=== PATIENT | male | born 1935 | race Caucasian/White ===

== ENCOUNTER 2019-05-10 15:53 | Emergency (ER) | payer OTHER, SELFPAY ==
[2019-05-10] VITALS (24 sets, daily range): BP systolic 94–124; BP diastolic 48–78; PULSE 84–182; RESP 18–36; TEMP 36.7; O2SAT 94–98
[2019-05-10 16:21] LABS: Abs Immature Grans 0.09 k/cumm (0.0-0.09); Absolute Basophil Count 0.02 k/cumm (0.0-0.2); Absolute Eosinophil Count 0.02 k/cumm (0.0-0.7); Absolute Lymphocyte Count 0.32 k/cumm (1.2-3.4); Basophils % 0.1; Eosinophils % 0.1; HCT 42.8 % (40.0-50.0); HGB 14.1 g/dL (13.5-17.5); Immature Grans % 0.5; Lymphocytes % 1.6; Mean Corp. HGB Concentration 32.9 g/dL (32.0-36.0); Mean Corpuscular Hemoglobin 30.3 pg (27.0-33.0); Mean Platelet Volume 10.1 fL (8.0-11.0); Monocytes % 8.5; Neutrophils % 89.2; Platelet Count 148 x1000/uL (130-400); RBC 4.65 m/cumm (4.50-6.00); RBC Distribution Width 17.8 % (11.8-14.1); White Blood Cell Count 19.88 k/cumm (4.4-10.8)
[2019-05-10 16:24] LABS: Absolute Monocyte Count 1.69 k/cumm (0.11-0.7); Absolute Neutrophil Count 17.73 k/cumm (1.2-6.7)
[2019-05-10 16:34] LABS: Prothrombin Time 31.7 sec (9.3-11.0)
[2019-05-10 16:40] LABS: INR 3.2 (0.9-1.1)
--- NOTE | 2019-05-10 16:43 | W.ED.GENAD ---
Discharge Plan Disposition Patient Disposition: [facility] Condition: Serious Discharge Details Chief Complaint: Vascular Clinical Impression: CHF (congestive heart failure), Leukocytosis Primary Care Provider: Erika,Local ED Provider: Omid Aviles Home Meds and New Rx's Prescriptions: No Action furosemide 20 MG tablet 80 mg PO BID RF: 0 metoprolol tartrate 25 MG tablet 125 mg PO DAILY RF: 0 warfarin [Coumadin] 5 MG tablet 10 mg PO DAILY RF: 0 ammonium lactate 12 % Lotion 1 applic TOPICAL DAILY RF: 0 cyanocobalamin (vitamin B-12) 1,000 mcg Tablet 1,000 mcg PO USEASDIRECTD RF: 0 melatonin 3 mg Tablet 6 mg PO HS RF: 0 allopurinol 100 mg Tablet 100 mg PO DAILY RF: 0 calcium carbonate [Calcium 500] 500 mg calcium (1,250 mg) Tablet 500 mg PO BID RF: 0 mirtazapine 30 mg Tablet 15 mg PO QHS RF: 0 albuterol sulfate 90 mcg/actuation Hfa Aerosol Inhaler 2 puff INHALATION 6XD PRNRF: 0 aspirin 81 MG tablet,chewable 81 mg PO DAILY RF: 0 Discharge Data Discharge Date/Time-TO BE ENTERED AT DEPARTURE: 05/10/19 20:55 Medical Decision Making 16:45 --83-year-old male with history of dementia, CHF, apparent aneurysm right lower extremity, here with difficult to discern chief complaint. Patient seems altered. Unclear at baseline. No focal neurologic deficits appreciated. Labs reviewed and leukocytosis noted. INR is therapeutic at 3.2. Patient does have increased work of breathing with lower extremity edema. Concern for acute exacerbation of his CHF. Nursing attempting to contact family. 17:30 --labs were reviewed troponin is elevated at 0.15. Patient also has notable leukocytosis, lactate of 2.0, and creatinine of 1.99. Prior creatinine from 2018 was 1.5. ECG was reviewed and interpreted by me: Atrial fibrillation 110 bpm, no STEMI, significant artifact, nondiagnostic. Patient does have a history of atrial fibrillation. I spoke with the patient's who is well informed of his condition, unfortunately, she is not able to join him here in the emergency department today as she recently had surgery. She notes that the reason she called EMS today was for increasing confusion over the past few weeks and worse over the past 10 days as well as increasing difficulty ambulating and shortness of breath. She notes that he has not had any fever, cough, headache, or neck stiffness. She does note that he recently had an admission a few weeks ago at the [facility] for [facility]. She states that his confusion waxes and wanes and can be severe at times. She confirms that she is the patient's healthcare power of burner shaft and it desire is for DNR/DNI. She does request the patient be transferred to [facility] for further treatment if possible. I asked the her about the patient's right lower extremity. She notes that he has persistent pain in this leg and that aneurysm and that popliteal fossa is stable at recent checkup. She notes that he has had chronic redness of his anterior distal right lower extremity without recent change. Suspect acute CHF exacerbation. Consider underlying infectious etiology including urinary tract infection. Patient is afebrile with no neck stiffness and no complaint of headache. I feel meningitis/encephalitis unlikely. UA and cxr pending. -- cxr reviewed and interpreted by me: No consolidation. UA neg. Labs reviewed and BNP is elevated at 7000 which is higher than prior value 5000 in 2018. Patient be administered Lasix 20 mg IV. Although erythema of right lower extremity thought to be chronic, potential source for elevated leukocytosis and lactic acidosis at this time is cellulitis of right lower extremity. Will cover with vancomycin 1.5g and ceftriaxone 2g. Plan to hospitalize for further treatment. [facility] and I spoke with his and she request transfer to [facility]. I explained that we could admit him here and treat him here and she felt that, given his prior extensive care at the [facility] she would request that he be transferred there at this time. I called the [facility] and spoke with Dr. Chu who will accept the patient in transfer. -- Repeat trop and lactate repeated resulted after discharge and increased. [facility]. HPI General Mode of arrival: EMS. Date/Time Provider Initiated Documentation: 05/10/19 16:01. Limitations to Documentation: altered mental status. Information obtained by: patient and EMS. HPI Narrative: 83-year-old male arrives with EMS, history listed in computer of atrial fibrillation, hypertension, hyperlipidemia, ischemic vascular disease bilateral lower extremities, AAA, Alzheimer's dementia, here with unclear chief complaint. Per EMS, they were called for increasing pain right leg. Patient notes he has mild pain that is chronic in his right distal lower extremity. History and review of systems limited secondary to dementia. I will attempt to obtain additional [facility] and from patient's was not currently present. Related Data Home Medications Medication Instructions Recorded Confirmed furosemide 80 mg PO BID 02/13/13 05/10/19 metoprolol tartrate 125 mg PO DAILY 02/13/13 05/10/19 warfarin [Coumadin] 10 mg PO DAILY 03/22/14 05/10/19 aspirin 81 mg PO DAILY 02/03/18 02/03/18 albuterol sulfate 2 puff INHALATION 6XD PRN 05/10/19 05/10/19 allopurinol 100 mg PO DAILY 05/10/19 05/10/19 ammonium lactate 1 applic TOPICAL DAILY 05/10/19 05/10/19 calcium carbonate [Calcium 500] 500 mg PO BID 05/10/19 05/10/19 cyanocobalamin (vitamin B-12) 1,000 mcg PO USEASDIRECTD 05/10/19 05/10/19 melatonin 6 mg PO HS 05/10/19 05/10/19 mirtazapine 15 mg PO QHS 05/10/19 05/10/19 Allergies Allergy/AdvReac Type Severity Reaction Status Date / Time simvastatin AdvReac Intermediate Dizziness/L Unverified 02/03/18 02:42 ightheade General Stated Complaint: Vascular JANET: 3 Review of Systems Narrative: ROS limited secondary to altered mental status All systems reviewed & are unremarkable except as noted in HPI and below Constitutional Constitutional: Denies fever(s) Cardiovascular Cardiovascular: Denies chest pain and Denies dyspnea Respiratory Respiratory: Denies dyspnea Gastrointestinal Gastrointestinal: Denies abdominal pain [facility] Medical History A-fib (Chronic) Alzheimer disease (Chronic) Aneurysm of right leg (Acute) CHF (congestive heart failure) (Chronic) Gout (Chronic) Social History Smoking/Tobacco Use Status: Never Alcohol Intake: current Alcohol Intake frequency: a few times a month Alcohol type: beer Drug use: Never Substance use type: does not use Do you feel safe at home: Yes Do you feel safe in your relationship?: Yes Exam Const General: cooperative and no acute distress HENMT Head: normocephalic Mouth: moist mucous membranes Eyes Conjunctivae: normal conjunctivae Sclera: normal sclerae EOM: EOM intact bilaterally Neck Neck: trachea midline and supple Resp Effort & Inspection: no audible wheezes, labored and tachypneic Auscultation: rales bilaterally, no rhonchi and no wheezes Cardio Jugular venous pressure: no JVD Rate: tachycardic Rhythm: regular rhythm Heart Sounds: no click, no gallops, no murmurs and no rubs Pulses: dorsalis pedis pulses present on the right dopplerable GI Palpation: soft, not firm, no guarding, no masses, not rigid and nontender Skin Rashes: rashes noted (Redness distal right lower extremity involving anterior lower leg) Neuro General: alert, awake, tone normal, confused and other (Patient is oriented times person and place, slow to respond to date) Extrem General: edema Laterality: bilateral (1+ pitting) Psych Appearance: grossly normal Course Vital Signs Vital signs: Vital Signs Temperature 36.7 C 05/10/19 16:01 Pulse 114 H 05/10/19 16:01 Respiratory Rate 36 H 05/10/19 16:01 Blood Pressure 117/72 05/10/19 16:01 Pulse Oximetry 95 05/10/19 16:01 Temperature 36.7 C 05/10/19 16:01 Temperature Source Skin 05/10/19 16:01 Pulse 114 H 05/10/19 16:01 Respiratory Rate 36 H 05/10/19 16:01 Respiratory Effort 05/10/19 16:15 Blood Pressure 117/72 05/10/19 16:01 Pulse Oximetry 95 05/10/19 16:01 Oxygen Delivery Method Nasal Cannula 05/10/19 16:01 Oxygen Flow Rate 2 05/10/19 16:01 Pain Level 1 05/10/19 16:01 Lab/Test Results Lab/Test Results: Laboratory Tests Range/Units 05/10/19 05/10/19 16:09 16:09 WBC (4.4-10.8) k/cumm 19.88 H RBC (4.50-6.00) m/cumm 4.65 Hgb (13.5-17.5) g/dL 14.1 Hct (40.0-50.0) % 42.8 MCV (80-95) fL 92.0 MCH (27.0-33.0) pg 30.3 MCHC (32.0-36.0) g/dL 32.9 RDW (11.8-14.1) % 17.8 H Plt Count (130-400) x1000/uL 148 MPV (8.0-11.0) fL 10.1 PT (9.3-11.0) sec 31.7 H INR (0.9-1.1) 3.2 H
[2019-05-10 16:57] LABS: ALT 29 U/L (16-63); AST 34 U/L (15-37); Albumin 3.4 g/dL (3.4-5.0); Alkaline Phosphatase 155 U/L (46-116); Anion Gap 10.4 mmol/L (3-11); BUN 75 mg/dL (7-18); Bilirubin, Total 2.8 mg/dL (0.2-1.0); CO2 27.6 mmol/L (21.0-32.0); CREATININE 1.99 mg/dL (0.70-1.30); Chloride 99 mmol/L (98-107); Estimated GFR 32.25 (mL/min/1.73m2); Glucose 143 mg/dL (70-100); Magnesium 2.6 mg/dL (1.8-2.4); Potassium 4.3 mmol/L (3.5-5.1); Sodium 137 mmol/L (136-145); Total Protein 7.4 g/dL (6.4-8.2)
[2019-05-10 17:02] LABS: Troponin I 0.15 ng/mL (0.00-0.06)
[2019-05-10 17:05] LABS: Diff Comment Diff Reviewed; RBC Morphology Normal
[2019-05-10 17:13] LABS: HCO3 (Venous) 31 mmol/L (22-28); O2 Sat (Venous) 73 % (70-80); TCO2 (Venous) 28 mmol/L (22-29); pCO2 (Venous) 45 mm/Hg (34-47); pH (Venous) 7.45 (7.32-7.43); pO2 (Venous) 38 mm/Hg (28-44)
[2019-05-10 17:25] LABS: Creatine Kinase 70 U/L (39-308)
--- NOTE | 2019-05-10 17:39 | DI.RAD_ITS ---
EXAM: XR CHEST 2V PA LATERAL INDICATION: SOB. COMPARISON: CHEST 2 VIEWS PA,LAT from 09/16/2017 TECHNIQUE: 2D digital imaging was performed. FINDINGS: The heart remains mildly enlarged. There has been interval placement of a thoracic aortic stent exte nding from the aortic arch to just above the hemidiaphragm. There is an unchanged calcified nodule i n the medial aspect of the right lung base. There is scarring seen in the mid lungs which appears st able. There does appear to be a small amount of fluid in the fissures on the lateral view. No focal consolidating infiltrates are present. There are again seen multiple old healed right rib fractures . IMPRESSION: 1. Interval placement of a thoracic aortic stent graft. 2. Stable cardiomegaly and trace fluid without dmitri CHF.
[2019-05-10] MEDS: Furosemide 20 MG/2 ML VIAL IVP (17:45)
[2019-05-10 18:28] LABS: NT-proBNP 7480 pg/mL
--- NOTE | 2019-05-10 18:41 | DI.VRAD_ITS ---
PROCEDURE INFORMATION: Exam: XR Chest, 2 Views Exam date and time: 05/10/2019 5:41 PM Clinical history: 83 years old, male; Other: SOB TECHNIQUE: Imaging protocol: XR of the chest Views: 2 views. COMPARISON: CR CHEST 2 VIEWS PA,LAT 09/16/2017 6:19 AM FINDINGS: Lungs: 1 cm calcified nodule medial right lung base unchanged. No congestion or focal area of consolidation is seen. Pleural space: There is minimal thickening of the major and minor fissures on the lateral view suggesting very minimal pleural fluid. Heart/Mediastinum: The heart is mildly enlarged. Vasculature: Stent material extends from the anterior aortic arch down to just above the diaphragm. No pulmonary vascular congestion or interstitial edema is seen. Linear density right midlung is unchanged since the comparison study and most likely represents scar. Bones/joints: Multiple old healed right rib fractures are again noted. IMPRESSION: 1. Status post aortic stent graft. 2. Mild cardiomegaly and trace pleural fluid without dmitri CHF. Dictated and Authenticated by: Matt Sanz MD. Ordering:BOB Anne MD
[2019-05-10 18:56] LABS: Bilirubin Negative (Negative); Blood Trace-lysed (Negative); Clarity Clear (Clear); Glucose Negative (Negative); Ketones Negative (Negative); Leukocyte Esterase Negative (Negative); Nitrite Negative (Negative); Specific Gravity <= 1.005 (1.005-1.025); pH 5.5 (5-8)
[2019-05-10 19:03] LABS: Bacteria Negative HPF (Negative); C & S Indicated? No; Casts Negative LPF (Negative); Crystals Negative HPF (Negative); Epithelial Cells Negative HPF (Negative); Mucus Negative (Negative); Other Cells Negative (Negative); RBC 0-2 (0-2); WBC 0-2 HPF (0-5)
[2019-05-10] MEDS: cefTRIAXone 2 GM/50 ML BAG IVPB (19:53)
[2019-05-10] MEDS: VANCOMYCIN 1,500 MG in Normal Saline 250 ML 166.6666 MG IVPB (20:27)
[2019-05-10] MEDS: Aspirin 81 MG CHEW PO (20:34)
[2019-05-10 20:41] LABS: Lactate 2.5 mmol/L (0.6-1.4)
--- NOTE | 2019-05-11 08:27 | NUR.NOTE ---
Patient tx's to [facility] results faxed to [phone] Note:
--- NOTE | 2019-05-12 11:04 | NUR.NOTE ---
Addendum entered by January Burgess 05/12/19 14:55: After multiple attempts of faxing the information. The information was given verbally over the phone to the RN. January Burgess. Original Note: Nursing Note: Verenice - lab called stating blood culture results 3 out of 4 bottles positive for Group C strep. Dr. Donna Aviles notified. January Burgess.
== END 2019-05-10 20:55 | disposition short-term general hospital (02) ==
LOC: ER 17:22
PROVIDERS: Emergency Provider Student in an Organized Health Care Education/Training Program
DX: I50.9 Heart failure, unspecified (principal); D72.829 Elevated white blood cell count, unspecified; I48.91 Unspecified atrial fibrillation; I11.0 Hypertensive heart disease with heart failure
CPT/HCPCS: 36415; 80053; 82550; 82805; 87040; 87077; 93005; 96361; 96374; 99285; 71046; 81003; 81015; 83605; 83735; 83880; 84484; 85025; 85610; 87186; 93010; J1941

== ENCOUNTER 2019-05-27 11:00 | Outpatient (CLI) | payer OTHER, SELFPAY ==
[2019-05-27 12:25] LABS: Abs Immature Grans 0.02 k/cumm (0.0-0.09); Absolute Basophil Count 0.02 k/cumm (0.0-0.2); Absolute Eosinophil Count 0.24 k/cumm (0.0-0.7); Absolute Lymphocyte Count 0.58 k/cumm (1.2-3.4); Absolute Monocyte Count 0.87 k/cumm (0.11-0.7); Absolute Neutrophil Count 4.97 k/cumm (1.2-6.7); Basophils % 0.3; Eosinophils % 3.6; HCT 40.4 % (40.0-50.0); HGB 12.7 g/dL (13.5-17.5); Immature Grans % 0.3; Lymphocytes % 8.7; Mean Corp. HGB Concentration 31.4 g/dL (32.0-36.0); Mean Corpuscular Hemoglobin 29.7 pg (27.0-33.0); Mean Corpuscular Volume 94.6 fL (80-95); Mean Platelet Volume 9.9 fL (8.0-11.0); Neutrophils % 74.1; Platelet Count 181 x1000/uL (130-400); RBC 4.27 m/cumm (4.50-6.00); RBC Distribution Width 18.3 % (11.8-14.1)
[2019-05-27 12:45] LABS: ALT 27 U/L (16-63); AST 30 U/L (15-37); Albumin 3.1 g/dL (3.4-5.0); Alkaline Phosphatase 181 U/L (46-116); BUN 30 mg/dL (7-18); Bilirubin, Total 1.2 mg/dL (0.2-1.0); CREATININE 1.28 mg/dL (0.70-1.30); Calcium 8.3 mg/dL (8.5-10.1); Chloride 104 mmol/L (98-107); Estimated GFR 53.67 (mL/min/1.73m2); Glucose 114 mg/dL (70-100); Magnesium 1.8 mg/dL (1.8-2.4); NT-proBNP 3839 pg/mL; Potassium 3.5 mmol/L (3.5-5.1); Sodium 144 mmol/L (136-145); Total Protein 6.4 g/dL (6.4-8.2)
[2019-05-27 12:51] LABS: D-Dimer 5424 ng/mlFEU (<500)
== END 2019-05-27 11:20 ==
PROVIDERS: Visit Provider Nurse Practitioner Adult Health
DX: L03.115 Cellulitis of right lower limb (principal); I50.9 Heart failure, unspecified; I48.91 Unspecified atrial fibrillation; I73.9 Peripheral vascular disease, unspecified
CPT/HCPCS: 80053; 83735; 83880; 85025; 85379; 86140

== ENCOUNTER 2019-06-02 14:01 | Outpatient (REF) | payer OTHER, SELFPAY ==
[2019-06-02 15:15] LABS: INR 1.6 (0.9-1.1); Prothrombin Time 16.2 sec (9.3-11.0)
[2019-06-02 15:17] LABS: Anion Gap 8.5 mmol/L (3-11); BUN 33 mg/dL (7-18); CO2 28.5 mmol/L (21.0-32.0); CREATININE 1.46 mg/dL (0.70-1.30); Calcium 8.7 mg/dL (8.5-10.1); Chloride 102 mmol/L (98-107); Estimated GFR 46.11 (mL/min/1.73m2); Glucose 134 mg/dL (70-100); Potassium 5.2 mmol/L (3.5-5.1); Sodium 139 mmol/L (136-145)
== END 2019-06-02 14:21 ==
LOC: LBN 14:01
PROVIDERS: Visit Provider Internal Medicine
DX: L03.115 Cellulitis of right lower limb (principal); I48.91 Unspecified atrial fibrillation; Z79.01 Long term (current) use of anticoagulants
CPT/HCPCS: 80048; 85610

== ENCOUNTER 2019-06-09 14:15 | Outpatient (REF) | payer OTHER, SELFPAY ==
[2019-06-09 15:22] LABS: INR 3.6 (0.9-1.1); Prothrombin Time 35.5 sec (9.3-11.0)
== END 2019-06-09 14:35 ==
LOC: LBN 14:15
PROVIDERS: Visit Provider Internal Medicine
DX: I48.91 Unspecified atrial fibrillation (principal); Z79.01 Long term (current) use of anticoagulants
CPT/HCPCS: 85610

== ENCOUNTER 2019-09-04 14:56 | Outpatient (CLI) | payer OTHER, SELFPAY ==
--- NOTE | 2019-09-04 | DI.RAD_ITS ---
EXAM: XR HAND LT COMPLETE INDICATION: HAND AND WRIST PAIN, DECREASED ROM, REDNESS, SWELLING, [id number]. COMPARISON: No exams were available for comparison TECHNIQUE: 2D digital imaging was performed. FINDINGS: There are severe degenerative changes at the 1st carpometacarpal joint. There is deformity of the tr apezium and prominent periarticular spurring as well as subchondral cyst formation. There is also se lindsay spurring at the xhyvnkngz-qvagcobat-ejixhmxsz joint. Milder degenerative changes are seen of th e distal radial ulnar joint and metacarpophalangeal joints. There are also moderate to severe degene rative changes of the distal interphalangeal joints of the fingers. IMPRESSION: Severe degenerative changes at the 1st carpometacarpal joint. DATA REPOSITORY: RADIATION DOSE DELIVERED:
--- NOTE | 2019-09-04 15:50 | DI.RAD_ITS ---
EXAM: XR HAND LT COMPLETE INDICATION: HAND AND WRIST PAIN, DECREASED ROM, REDNESS, SWELLING, [id number]. COMPARISON: No exams were available for comparison TECHNIQUE: 2D digital imaging was performed. FINDINGS: There are severe degenerative changes at the 1st carpometacarpal joint. There is deformity of the tr apezium and prominent periarticular spurring as well as subchondral cyst formation. There is also se lindsay spurring at the zpglzszle-jdfsjeumf-wohhkdqav joint. Milder degenerative changes are seen of th e distal radial ulnar joint and metacarpophalangeal joints. There are also moderate to severe degene rative changes of the distal interphalangeal joints of the fingers. IMPRESSION: Severe degenerative changes at the 1st carpometacarpal joint. DATA REPOSITORY: RADIATION DOSE DELIVERED:
== END 2019-09-04 15:16 ==
PROVIDERS: Visit Provider Nurse Practitioner Adult Health
DX: M25.542 Pain in joints of left hand (principal); M25.532 Pain in left wrist; M18.12 Unilateral primary osteoarthritis of first carpometacarpal joint, left hand; M19.032 Primary osteoarthritis, left wrist; M19.042 Primary osteoarthritis, left hand
CPT/HCPCS: 73110; 73130

== ENCOUNTER 2019-09-09 12:54 | Outpatient (REF) | payer OTHER, SELFPAY ==
[2019-09-09 15:21] LABS: Prothrombin Time 47.9 sec (9.3-11.0)
== END 2019-09-09 13:14 ==
LOC: LBN 12:54
PROVIDERS: Visit Provider Internal Medicine
DX: I48.20 Chronic atrial fibrillation, unspecified (principal); Z79.01 Long term (current) use of anticoagulants
CPT/HCPCS: 85610

== ENCOUNTER 2019-09-11 11:41 | Outpatient (REF) | payer OTHER, SELFPAY ==
[2019-09-11 12:33] LABS: HCT 43.3 % (40.0-50.0); HGB 14.3 g/dL (13.5-17.5); Mean Corpuscular Hemoglobin 30.2 pg (27.0-33.0); Mean Corpuscular Volume 91.4 fL (80-95); Mean Platelet Volume 9.1 fL (8.0-11.0); Platelet Count 369 x1000/uL (130-400); RBC 4.74 m/cumm (4.50-6.00); RBC Distribution Width 16.3 % (11.8-14.1); White Blood Cell Count 7.14 k/cumm (4.4-10.8)
[2019-09-11 13:01] LABS: INR 3.8 (0.9-1.1); Prothrombin Time 36.5 sec (9.3-11.0)
== END 2019-09-11 12:01 ==
LOC: LBN 11:41
PROVIDERS: Visit Provider Internal Medicine
DX: I48.91 Unspecified atrial fibrillation (principal); Z79.01 Long term (current) use of anticoagulants
CPT/HCPCS: 85027; 85610

== ENCOUNTER 2019-10-31 13:11 | Outpatient (REF) | payer OTHER, SELFPAY ==
[2019-10-31 14:57] LABS: Anion Gap 6.2 mmol/L (3-11); BUN 52 mg/dL (7-18); CO2 33.8 mmol/L (21.0-32.0); CREATININE 1.71 mg/dL (0.70-1.30); Calcium 9.5 mg/dL (8.5-10.1); Chloride 99 mmol/L (98-107); Estimated GFR 38.33 (mL/min/1.73m2); Glucose 105 mg/dL (74-106); Potassium 4.2 mmol/L (3.5-5.1); Sodium 139 mmol/L (136-145)
== END 2019-10-31 13:31 ==
LOC: LBN 13:11
PROVIDERS: Visit Provider Internal Medicine
DX: I50.32 Chronic diastolic (congestive) heart failure (principal)
CPT/HCPCS: 80048

== ENCOUNTER 2019-11-28 13:59 | Outpatient (REF) | payer OTHER, SELFPAY ==
[2019-11-28 14:21] LABS: Abs Immature Grans 0.04 k/cumm (0.0-0.09); Absolute Basophil Count 0.02 k/cumm (0.0-0.2); Absolute Eosinophil Count 0.32 k/cumm (0.0-0.7); Absolute Lymphocyte Count 0.89 k/cumm (1.2-3.4); Absolute Monocyte Count 1.01 k/cumm (0.11-0.7); Basophils % 0.2; Eosinophils % 3.6; HCT 46.1 % (40.0-50.0); HGB 15.3 g/dL (13.5-17.5); Immature Grans % 0.5 %; Mean Corp. HGB Concentration 33.2 g/dL (32.0-36.0); Mean Corpuscular Volume 93.5 fL (80-95); Mean Platelet Volume 9.8 fL (8.0-11.0); Monocytes % 11.4; Neutrophils % 74.3; Platelet Count 230 x1000/uL (130-400); RBC 4.93 m/cumm (4.50-6.00); RBC Distribution Width 16.5 % (11.8-14.1); White Blood Cell Count 8.88 k/cumm (4.4-10.8)
[2019-11-28 14:49] LABS: Anion Gap 8.1 mmol/L (3-11); BUN 58 mg/dL (7-18); CO2 33.9 mmol/L (21.0-32.0); CREATININE 1.54 mg/dL (0.70-1.30); Calcium 9.3 mg/dL (8.5-10.1); Chloride 97 mmol/L (98-107); Estimated GFR 43.25 (mL/min/1.73m2); Glucose 104 mg/dL (74-106); Potassium 3.9 mmol/L (3.5-5.1); Sodium 139 mmol/L (136-145)
== END 2019-11-28 14:19 ==
LOC: LBN 13:59
PROVIDERS: Visit Provider Internal Medicine
DX: I50.32 Chronic diastolic (congestive) heart failure (principal); I27.20 Pulmonary hypertension, unspecified; I87.2 Venous insufficiency (chronic) (peripheral); I13.2 Hypertensive heart and chronic kidney disease with heart failure and with stage 5 chronic kidney disease, or end stage renal disease
CPT/HCPCS: 80048; 85025

== ENCOUNTER 2020-01-30 13:18 | Outpatient (REF) | payer OTHER, SELFPAY ==
[2020-01-30 14:39] LABS: HCT 42.9 % (40.0-50.0); HGB 14.5 g/dL (13.5-17.5); Mean Corp. HGB Concentration 33.8 g/dL (32.0-36.0); Mean Corpuscular Volume 94.7 fL (80-95); Mean Platelet Volume 9.9 fL (8.0-11.0); Platelet Count 222 x1000/uL (130-400); RBC 4.53 m/cumm (4.50-6.00); RBC Distribution Width 14.9 % (11.8-14.1); White Blood Cell Count 8.04 k/cumm (4.4-10.8)
== END 2020-01-30 13:38 ==
LOC: LBN 13:18
PROVIDERS: Visit Provider Nurse Practitioner Adult Health
DX: I13.0 Hypertensive heart and chronic kidney disease with heart failure and stage 1 through stage 4 chronic kidney disease, or unspecified chronic kidney disease (principal); I50.32 Chronic diastolic (congestive) heart failure
CPT/HCPCS: 85027

== ENCOUNTER 2020-07-30 23:09 | Outpatient (REF) | payer MEDICARE, SELFPAY ==
[2020-07-30 16:44] LABS: Abs Immature Grans 0.03 10^3/uL (0.0-0.06); Absolute Basophil Count 0.05 10^3/uL (0.0-0.2); Absolute Eosinophil Count 0.32 10^3/uL (0.0-0.7); Absolute Monocyte Count 1.01 10^3/uL (0.1-0.8); Absolute Neutrophil Count 5.91 10^3/uL (1.2-6.7); Basophils % 0.6; Eosinophils % 3.9; HCT 42.3 % (40.0-50.0); HGB 13.8 g/dL (13.5-17.5); Immature Grans % 0.4; Lymphocytes % 9.9; MCH 31.4 pg (27.0-33.0); MCHC 32.6 % (32.0-36.0); MCV 96.1 fL (80-95); MPV 10.4 fL (8.0-11.0); Monocytes % 12.4; Neutrophils % 72.8; Nucleated RBC 0 %; Platelet Count 210 10^3/uL (130-400); RDW 14.6 % (11.8-14.1); WBC 8.12 10^3/uL (4.4-10.8)
[2020-07-30 17:11] LABS: ALT 19 U/L (16-63); AST 19 U/L (15-37); Estimated GFR 41.39 (mL/min/1.73m2)
== END 2020-07-30 23:29 ==
LOC: LBN 23:09
PROVIDERS: Visit Provider Nurse Practitioner Adult Health
DX: I50.32 Chronic diastolic (congestive) heart failure (principal); I27.20 Pulmonary hypertension, unspecified; N18.9 Chronic kidney disease, unspecified
CPT/HCPCS: 82565; 84450; 84460; 85025

== ENCOUNTER 2020-09-17 12:47 | Outpatient (REF) | payer MEDICARE, SELFPAY ==
[2020-09-17 13:37] LABS: HCT 42.6 % (40.0-50.0); MCH 31.3 pg (27.0-33.0); MCHC 32.9 % (32.0-36.0); MCV 95.1 fL (80-95); Platelet Count 225 10^3/uL (130-400); RBC 4.48 10^6/uL (4.36-5.78); RDW 14.6 % (11.8-14.1); RDW-SD 50.7 fL; WBC 7.78 10^3/uL (4.4-10.8)
[2020-09-17 14:00] LABS: ALT 20 U/L (16-63); AST 19 U/L (15-37); CREATININE 1.7 mg/dL (0.70-1.30); Magnesium 2.5 mg/dL (1.8-2.4); Potassium 3.7 mmol/L (3.5-5.1)
== END 2020-09-17 12:48 | disposition home or self-care (01) ==
LOC: LBN 12:47
PROVIDERS: Visit Provider Nurse Practitioner Adult Health
DX: I50.32 Chronic diastolic (congestive) heart failure (principal); I13.2 Hypertensive heart and chronic kidney disease with heart failure and with stage 5 chronic kidney disease, or end stage renal disease; J44.9 Chronic obstructive pulmonary disease, unspecified
CPT/HCPCS: 85027; 82565; 83735; 84132; 84450; 84460

== ENCOUNTER 2021-02-03 15:22 | Outpatient (REF) | payer MEDICARE, SELFPAY ==
[2021-02-03 17:55] LABS: HCT 40.3 % (40.0-50.0); HGB 13.2 g/dL (13.5-17.5); MCH 31.8 pg (27.0-33.0); MCHC 32.8 % (32.0-36.0); MCV 97.1 fL (80-95); MPV 11.3 fL (8.0-11.0); Platelet Count 159 10^3/uL (130-400); RBC 4.15 10^6/uL (4.36-5.78); RDW 15.4 % (11.8-14.1); RDW-SD 54.4 fL; WBC 7.05 10^3/uL (4.4-10.8)
[2021-02-03 18:01] LABS: CREATININE 1.6 mg/dL (0.70-1.30); Estimated GFR 41.29 (mL/min/1.73m2)
== END 2021-02-03 15:23 | disposition home or self-care (01) ==
LOC: LBN 15:22
PROVIDERS: Visit Provider Nurse Practitioner Adult Health
DX: I50.9 Heart failure, unspecified (principal); N18.9 Chronic kidney disease, unspecified
CPT/HCPCS: 85027; 82565

== ENCOUNTER 2021-03-10 12:40 | Outpatient (REF) | payer MEDICARE, SELFPAY ==
[2021-03-10 13:19] LABS: Abs Immature Grans 0.02 10^3/uL (0.0-0.06); Absolute Basophil Count 0.04 10^3/uL (0.0-0.2); Absolute Eosinophil Count 0.34 10^3/uL (0.0-0.7); Absolute Monocyte Count 0.79 10^3/uL (0.1-0.8); Absolute Neutrophil Count 4.94 10^3/uL (1.2-6.7); Basophils % 0.6; Eosinophils % 5.1; HCT 42.2 % (40.0-50.0); Immature Grans % 0.3; Lymphocytes % 8.9; MCH 31.7 pg (27.0-33.0); MCHC 33.2 % (32.0-36.0); MCV 95.7 fL (80-95); MPV 10.1 fL (8.0-11.0); Monocytes % 11.7; Neutrophils % 73.4; Nucleated RBC 0 %; Platelet Count 174 10^3/uL (130-400); RBC 4.41 10^6/uL (4.36-5.78); RDW 14.8 % (11.8-14.1); RDW-SD 52.4 fL; WBC 6.73 10^3/uL (4.4-10.8)
[2021-03-10 13:30] LABS: CREATININE 1.6 mg/dL (0.70-1.30); Estimated GFR 41.29 (mL/min/1.73m2)
== END 2021-03-10 12:41 | disposition home or self-care (01) ==
LOC: LBN 12:40
PROVIDERS: Visit Provider Nurse Practitioner Adult Health
DX: I13.0 Hypertensive heart and chronic kidney disease with heart failure and stage 1 through stage 4 chronic kidney disease, or unspecified chronic kidney disease (principal)
CPT/HCPCS: 82565; 85025

== ENCOUNTER 2021-06-29 15:50 | Outpatient (REF) | payer MEDICARE, SELFPAY ==
[2021-06-29 13:45] LABS: Abs Immature Grans 0.03 10^3/uL (0.0-0.06); Absolute Basophil Count 0.03 10^3/uL (0.0-0.2); Absolute Lymphocyte Count 0.61 10^3/uL (1.2-3.4); Absolute Neutrophil Count 5.58 10^3/uL (1.2-6.7); Basophils % 0.4; Eosinophils % 2.7; HCT 39.8 % (40.0-50.0); Immature Grans % 0.4; Lymphocytes % 8.3; MCH 31.8 pg (27.0-33.0); MCHC 32.7 % (32.0-36.0); MCV 97.3 fL (80-95); MPV 10.4 fL (8.0-11.0); Monocytes % 12.2; Nucleated RBC 0 %; Platelet Count 174 10^3/uL (130-400); RBC 4.09 10^6/uL (4.36-5.78); RDW 15.3 % (11.8-14.1); RDW-SD 54.4 fL; WBC 7.35 10^3/uL (4.4-10.8)
[2021-06-29 13:57] LABS: CREATININE 1.9 mg/dL (0.70-1.30); Estimated GFR 33.86 (mL/min/1.73m2)
== END 2021-06-29 15:51 | disposition home or self-care (01) ==
LOC: NCHCN 15:50
PROVIDERS: Visit Provider Nurse Practitioner Adult Health
DX: I30.0 Acute nonspecific idiopathic pericarditis (principal)
CPT/HCPCS: 82565; 85025

== ENCOUNTER 2021-08-12 13:12 | Outpatient (REF) | payer MEDICARE, SELFPAY ==
[2021-08-12 15:01] LABS: Potassium 3.9 mmol/L (3.5-5.1)
== END 2021-08-12 13:13 | disposition home or self-care (01) ==
LOC: LBN 13:12
PROVIDERS: Visit Provider Nurse Practitioner Adult Health
DX: I13.0 Hypertensive heart and chronic kidney disease with heart failure and stage 1 through stage 4 chronic kidney disease, or unspecified chronic kidney disease (principal); I50.32 Chronic diastolic (congestive) heart failure
CPT/HCPCS: 84132